=== PATIENT | male | born 1965 | race Caucasian/White ===

== ENCOUNTER → 2023-11-13 15:04 | Outpatient (REF) | payer SELFPAY ==
[2023-11-13 20:46] LABS: Rubella Positive
== END ==
LOC: REG 15:04
PROVIDERS: ATTENDING PHYSICIAN Nurse Practitioner Family; FAMILY PHYSICIAN Family Medicine
DX: Z23 Encounter for immunization (principal)
CPT/HCPCS: 36415; 86735; 86762; 86765; 86787